=== PATIENT | female | born 1980 | race Caucasian/White ===

== ENCOUNTER 2025-06-20 14:04 | Outpatient (CLI) | payer OTHER, SELFPAY ==
--- NOTE | 2025-06-20 14:11 | MM_ITS ---
WS: [id number] BILATERAL 3D TOMOSYNTHESIS DIGITAL SCREENING MAMMOGRAPHY WITH CAD CLINICAL INFORMATION: SCREENING HISTORY: Screening mammogram. No current complaints. COMPARISON: Baseline TECHNIQUE: Bilateral CC and MLO views. FINDINGS: The breasts are composed of heterogeneous fibroglandular density tissue, which can limit the detection of small underlying mass lesions. Ovoid nodule central RIGHT breast measuring 7 mm. Recommend RIGHT breast diagnostic mammography and ultrasound considering no comparisons. Unremarkable LEFT breast MM/MM [facility] tomosynthesis [id number] IMPRESSION: DENSITY: The breasts are heterogeneously dense, which may obscure small masses. BI-RADS: 0 - Incomplete: Need additional imaging evaluation FOLLOW UP: Need Additional Imaging Recommend RIGHT breast diagnostic mammography and ultrasound.
== END 2025-06-20 14:05 | disposition home or self-care (01) ==
LOC: RAD 14:07
PROVIDERS: Family Provider Family Medicine; Visit Provider Nurse Practitioner Family
DX: Z12.31 Encounter for screening mammogram for malignant neoplasm of breast (principal); R92.333 Mammographic heterogeneous density, bilateral breasts; R92.323 Mammographic fibroglandular density, bilateral breasts; N63.10 Unspecified lump in the right breast, unspecified quadrant
CPT/HCPCS: 77063; 77067

== ENCOUNTER 2025-07-01 13:01 | Outpatient (CLI) | payer OTHER, SELFPAY ==
--- NOTE | 2025-07-01 13:11 | MM_ITS ---
WS: [id number] RIGHT 3D TOMOSYNTHESIS DIGITAL MAMMOGRAPHY WITH CAD CLINICAL INFORMATION: ABNORMAL MAMMOGRAM HISTORY: Additional views COMPARISON: 06/20/2025 TECHNIQUE: 3 views of the right breast were obtained. FINDINGS: The right breast is composed of heterogeneous fibroglandular density tissue, which can limit the detection of small underlying mass lesions. Again seen is a 7 mm ovoid nodule central RIGHT breast. Ultrasound is described below. ULTRASOUND BREAST RIGHT TECHNIQUE: Ultrasound right breast focused area of concern. CLINICAL INFORMATION: ABNORMAL MAMMOGRAM FINDINGS: Ultrasound 12-6 RIGHT breast. Simple cyst 6:00 3 cm from the nipple measuring 6 mm. Dense parenchymal tissue in this area. Additional simple cyst at the 12 o'clock position 3 cm from the nipple measuring 4 mm. No other suspicious findings. Recommend return to annual screening mammography MM/MM diag RT tomosynthesis [id number] IMPRESSION: DENSITY: The breasts are heterogeneously dense, which may obscure small masses. BI-RADS: 2 - Benign FOLLOW UP: 1 Year Follow-up Recommend return to annual screening mammography.
== END 2025-07-01 13:02 | disposition home or self-care (01) ==
LOC: RAD 13:04
PROVIDERS: Family Provider Family Medicine; PCP Nurse Practitioner Family; Visit Provider Nurse Practitioner Family
DX: R92.8 Other abnormal and inconclusive findings on diagnostic imaging of breast (principal); R92.321 Mammographic fibroglandular density, right breast; R92.331 Mammographic heterogeneous density, right breast; N63.15 Unspecified lump in the right breast, overlapping quadrants; N60.01 Solitary cyst of right breast
CPT/HCPCS: 76642; 77061; G0279